=== PATIENT | female | born 1930 | race Caucasian/White ===

== ENCOUNTER 2020-08-20 09:05 | Inpatient (IN) | payer MEDICARE, OTHER ==
[~2020-08-20 09:05] MED LIST: ALLOPURINOL 30300 MG PO; BENAZEPRIL HCL10 MG PO; CEPHALEXIN250 MG PO; DONEPEZIL HCL5 MG PO; GEMFIBROZIL600 MG PO; LANTUS SOL100 UNIT/1 SC; MEMANTINE HCL10 MG PO; PREDNISONE10 MG PO; TYLENOL #31 EACH PO; VIBRAMYCIN100 MG PO; ZOLOFT25 MG PO
[2020-08-20 10:06] LABS: BASOPHIL 0.4 % (0-2); EOSINOPHIL 2.3 % (0-7); HCT 42.4 % (37.0-47.0); HGB 14.2 g/dl (12.5-16.0); LYMPHOCYTE 3.5 % (15-48); MCH 32.4 pg (25.0-31.0); MCHC 33.5 g/dL (32.0-36.0); MCV 96.8 fL (78.0-100.0); MONOCYTE 4.2 % (0-12); MPV 10.4 fL (6.0-9.5); NEUTROPHIL 88.2 % (41-80); NRBC 0; PLT 364 K/uL (150-400); RBC 4.38 M/uL (4.20-5.40); RDW 14.8 % (11.5-14.0); WBC 13.8 K/uL (4.0-10.5)
[2020-08-20 10:32] LABS: BILIRUBIN 1+ mg/dL (NEGATIVE); BLOOD TRACE-INTACT Ery/uL (NEGATIVE); CLARITY CLEAR (CLEAR); COLOR YELLOW (YELLOW); GLUCOSE (U) NORMAL (NORMAL); LEUKOCYTES NEGATIVE Leu/uL (NEGATIVE); NITRITE POSITIVE (NEGATIVE); PROTEIN 1+ mg/dL (NEGATIVE); pH 5.5 (5.0-9.0)
[2020-08-20 10:34] LABS: ALBUMIN 2.5 g/dL (3.4-5.0); BILIRUBIN - TOTAL 1.1 mg/dL (0.2-1.0); BUN/CREAT RATIO (CALC) 33.9 RATIO; CREATININE 1.12 mg/dL (0.51-0.95); GLOBULIN (CALCULATION) 4.4 g/dL; POTASSIUM 4.4 mmol/L (3.5-5.1); TOTAL PROTEIN 6.9 g/dL (6.4-8.2)
[2020-08-20 11:02] LABS: BACTERIA 3+; SQUAMOUS EPITHELIAL CELLS RARE
[2020-08-20 11:13] LABS: LACTIC ACID 1.1 mmol/L (0.4-1.9)
[2020-08-21 04:48] LABS: ALKALINE PHOSHATASE 386 U/L (46-116); ALT 121 U/L (14-59); AST 111 U/L (15-37); BILIRUBIN - TOTAL 0.5 mg/dL (0.2-1.0); BUN 42 mg/dL (7-18); BUN/CREAT RATIO (CALC) 35.3 RATIO; CHLORIDE 107 mmol/L (98-107); CHOLESTEROL 174 mg/dL (<200); CO2 (BICARBONATE) 23 mmol/L (21-32); CREATININE 1.19 mg/dL (0.51-0.95); GLOBULIN (CALCULATION) 4.8 g/dL; GLUCOSE 100 mg/dL (74-106); HDL 42 mg/dL (40-60); LDL - DIRECT 86 mg/dL (<100); LIPASE >2250 U/L (73-393); POTASSIUM 3.6 mmol/L (3.5-5.1); TOTAL PROTEIN 6.8 g/dL (6.4-8.2); TRIGLYCERIDES 150 mg/dL (<150)
[2020-08-22 06:07] LABS: BASOPHIL 0.4 % (0-2); EOSINOPHIL 4.6 % (0-7); HCT 35.3 % (37.0-47.0); HGB 11.1 g/dl (12.5-16.0); LYMPHOCYTE 16.3 % (15-48); MCH 32.5 pg (25.0-31.0); MCHC 31.4 g/dL (32.0-36.0); MCV 103.2 fL (78.0-100.0); MONOCYTE 6.4 % (0-12); MPV 10.3 fL (6.0-9.5); NEUTROPHIL 68.8 % (41-80); NRBC 0; PLT 280 K/uL (150-400); RBC 3.42 M/uL (4.20-5.40); RDW 15.2 % (11.5-14.0)
[2020-08-22 06:12] LABS: WBC 8.5 K/uL (4.0-10.5)
[2020-08-22 06:32] LABS: ALBUMIN 1.5 g/dL (3.4-5.0); BILIRUBIN - TOTAL 0.4 mg/dL (0.2-1.0); BUN/CREAT RATIO (CALC) 36.2 RATIO; CREATININE 0.8 mg/dL (0.51-0.95); GLOBULIN (CALCULATION) 3.5 g/dL; POTASSIUM 3.9 mmol/L (3.5-5.1)
--- NOTE | 2020-08-22 10:08 | NUR ---
LIVES WITH DTR; ASSIST WITH CARE
--- NOTE | 2020-08-22 16:36 | NUR ---
08/22 Ms. Eric's daughter stays with her during the week and her son's stay on the weekend. She has a rollator and s. chair. Per family choice a referral was made to [facility]. Please notify [facility] of discharge if pt discharges over the weekend, [phone]. - Family was educated to Medicaid benefits.
--- NOTE | 2020-08-23 03:33 | NUR ---
08/23/20 0000 PT C/O SOA OXYGEN SATURATION 94% ON 3L NC, PT LUNG SOUNDS CLEAR OVER DIMINISHED, PT GIVEN PROVENT INHALOR TWO PUFFS VIA SORTER/ASSAY TECH, OYSTER WORKER CALLED. OYSTER WORKER SAID TO MONITOR NO ORDERS AT THIS TIME, 08/23/20 0300 PT C/O SOA OXYGEN SATURATION 96% ON 3L NC, PT LUNG SOUNDS CLEAR OVER DIMINISHED, OYSTER WORKER CONSULTED, OYSTER WORKER CHANGE CXR ORDER FROM 0500 TO NOW, OYSTER WORKER ORDERED 40MG IVP LASIX INSTRUCTED TO WAIT TO GIVE UNTIL CXR READ, OYSTER WORKER CALLED XRAY FOR INTERPRETATION OYSTER WORKER STATED CXR SHOWS EDEMA AND ORDERED TO HOLD FLUIDS AND TO GIVE LASIX 40MG IVP NOW.
[2020-08-23 04:35] LABS: BASOPHIL 1.1 % (0-2); EOSINOPHIL 4.1 % (0-7); HCT 38.4 % (37.0-47.0); HGB 12.2 g/dl (12.5-16.0); LYMPHOCYTE 20.2 % (15-48); MCH 32.4 pg (25.0-31.0); MCHC 31.8 g/dL (32.0-36.0); MCV 101.9 fL (78.0-100.0); MONOCYTE 7.9 % (0-12); MPV 10.3 fL (6.0-9.5); NEUTROPHIL 62.4 % (41-80); NRBC 0; PLT 316 K/uL (150-400); RBC 3.77 M/uL (4.20-5.40); RDW 15.3 % (11.5-14.0)
[2020-08-23 05:11] LABS: ALBUMIN 1.9 g/dL (3.4-5.0); BILIRUBIN - TOTAL 0.4 mg/dL (0.2-1.0); BUN/CREAT RATIO (CALC) 28.3 RATIO; CREATININE 0.92 mg/dL (0.51-0.95); GLOBULIN (CALCULATION) 4.3 g/dL; POTASSIUM 3.4 mmol/L (3.5-5.1); TOTAL PROTEIN 6.2 g/dL (6.4-8.2)
--- NOTE | 2020-08-23 14:37 | NUR ---
08/23 Dr. Joseph ordered IV Ertapenim through . A referral was made to [facility]. [facility] request for the peripheral IV not to be removed at discharge. Report given to JULIÁN Calix RN.
[2020-08-24 04:29] LABS: BASOPHIL 0.5 % (0-2); EOSINOPHIL 4.9 % (0-7); HCT 38.8 % (37.0-47.0); HGB 12.5 g/dl (12.5-16.0); MCH 32.3 pg (25.0-31.0); MCHC 32.2 g/dL (32.0-36.0); MCV 100.3 fL (78.0-100.0); MONOCYTE 8.6 % (0-12); MPV 10.5 fL (6.0-9.5); NEUTROPHIL 55.1 % (41-80); NRBC 0; PLT 315 K/uL (150-400); RBC 3.87 M/uL (4.20-5.40); RDW 15.1 % (11.5-14.0)
[2020-08-24 04:35] LABS: WBC 8.4 K/uL (4.0-10.5)
[2020-08-24 04:54] LABS: ALBUMIN 1.9 g/dL (3.4-5.0); BILIRUBIN - TOTAL 0.4 mg/dL (0.2-1.0); BUN/CREAT RATIO (CALC) 23.9 RATIO; CREATININE 0.92 mg/dL (0.51-0.95); GLOBULIN (CALCULATION) 4.2 g/dL; TOTAL PROTEIN 6.1 g/dL (6.4-8.2)
[2020-08-24] MEDS ORDERED: PLAVIX75 MG PO (08:41)
[2020-08-24] MEDS ORDERED: DESYREL50 MG PO (08:41)
[2020-08-24] MEDS ORDERED: ASPIRIN EC81 MG PO (08:41)
[2020-08-24] MEDS ORDERED: LASIX20 MG PO (08:41)
--- NOTE | 2020-08-24 14:44 | NUR ---
0543 PT DISCAHRED INSTRUCTION DISCUSSED WITH PT AND SON, VERBALIZED UNDERSTANDING. PT SEN HOME WITH A IV #20 LFA, SHE IS HAVING OUT PT INFUSIONS AT HOME. PT TRANSPORTED BY WHEELCHAIR TO FAMILY CAR WITH SON.
== END 2020-08-24 13:30 | disposition home health service (06) | DRG 280 ==
LOC: FER 09:05 → FTCU 11:23
PROVIDERS: Emergency Medicine; ADMIT Allergy & Immunology Allergy
PROC: B24BZZZ Ultrasonography of Heart with Aorta (ICD-10-PCS; principal; 2020-08-21)
DX: I21.4 Non-ST elevation (NSTEMI) myocardial infarction (principal); I50.21 Acute systolic (congestive) heart failure; N39.0 Urinary tract infection, site not specified; Z16.12 Extended spectrum beta lactamase (ESBL) resistance; K86.1 Other chronic pancreatitis; I48.92 Unspecified atrial flutter; B96.20 Unspecified Escherichia coli [E. coli] as the cause of diseases classified elsewhere; F03.90 Unspecified dementia, unspecified severity, without behavioral disturbance, psychotic disturbance, mood disturbance, and anxiety; E78.5 Hyperlipidemia, unspecified; E11.9 Type 2 diabetes mellitus without complications; M10.9 Gout, unspecified; I11.0 Hypertensive heart disease with heart failure; K21.9 Gastro-esophageal reflux disease without esophagitis; M54.5 Low back pain; J44.9 Chronic obstructive pulmonary disease, unspecified; F32.9 Major depressive disorder, single episode, unspecified; Z90.49 Acquired absence of other specified parts of digestive tract; Z98.890 Other specified postprocedural states; Z88.1 Allergy status to other antibiotic agents; Z88.2 Allergy status to sulfonamides; Z88.0 Allergy status to penicillin; Z20.822 Contact with and (suspected) exposure to COVID-19
CPT/HCPCS: 36415; 70450; 70551; 71045; 80053; 80061; 81001; 82150; 82962; 83036; 83605; 83690; 83880; 84145; 84484; 85025; 87040; 87076; 87088; 87186; 93005; 94640; 97110; 97162; 97166; 97530-GP; 97535; G0378; J0696; J1335; J1650; J1940; J2060; J7030; J7120; Q9967; U0002

== ENCOUNTER 2020-08-25 08:31 | Emergency (ER) | payer MEDICARE, OTHER ==
[~2020-08-25 08:31] MED LIST changes: +ASPIRIN EC81 MG PO; +DESYREL50 MG PO; +LASIX20 MG PO; +PLAVIX75 MG PO
[2020-08-25 10:03] LABS: BASOPHIL 0.2 % (0-2); EOSINOPHIL 0.2 % (0-7); HCT 39.3 % (37.0-47.0); HGB 12.6 g/dl (12.5-16.0); LYMPHOCYTE 1.6 % (15-48); MCH 32.6 pg (25.0-31.0); MCHC 32.1 g/dL (32.0-36.0); MCV 101.6 fL (78.0-100.0); MONOCYTE 3.5 % (0-12); MPV 10.2 fL (6.0-9.5); NEUTROPHIL 92.6 % (41-80); NRBC 0.1; PLT 302 K/uL (150-400); RBC 3.87 M/uL (4.20-5.40); RDW 15.3 % (11.5-14.0)
[2020-08-25 10:09] LABS: WBC 32.3 K/uL (4.0-10.5)
[2020-08-25 10:18] LABS: ALBUMIN 1.9 g/dL (3.4-5.0); BILIRUBIN - TOTAL 0.6 mg/dL (0.2-1.0); BUN/CREAT RATIO (CALC) 16.6 RATIO; CREATININE 1.45 mg/dL (0.51-0.95); MAGNESIUM 1.1 mg/dL (1.8-2.4); POTASSIUM 3.5 mmol/L (3.5-5.1); TOTAL PROTEIN 5.9 g/dL (6.4-8.2)
--- NOTE | 2020-08-25 12:15 | NUR ---
08/25/20 Ms. Eric was discharged home on 08/24/20 with [facility] . She return to the ED today and family has requested Hospice. A referral was made to Hospice. Hospice accepted and is arranging delivery of a hospital bed prior to patient returning home. - Emergency Room Nurse was requested to completed an EMS DNR form.
== END 2020-08-25 16:25 | disposition home or self-care (01) ==
LOC: FER 08:31
PROVIDERS: Emergency Medicine
DX: A41.9 Sepsis, unspecified organism (principal); N39.0 Urinary tract infection, site not specified; G93.40 Encephalopathy, unspecified; I11.0 Hypertensive heart disease with heart failure; I50.9 Heart failure, unspecified; I44.7 Left bundle-branch block, unspecified; I25.2 Old myocardial infarction; Z16.12 Extended spectrum beta lactamase (ESBL) resistance
CPT/HCPCS: 36415; 71045; 80053; 83605; 83735; 83880; 84145; 85025; 93005; J1335; J7030